=== PATIENT | male | born 1975 ===

== ENCOUNTER → 2023-05-10 | Outpatient (CLI) | payer OTHER ==
[2023-05-12 18:06] LABS: CHLAMYDIA BY NAA Negative (Negative); GONOCOCCUS BY NAA Negative (Negative); TRICH VAG BY NAA Negative (Negative)
== END ==
LOC: LAB 15:00 → LAB SHORT 15:00
PROVIDERS: Registered Nurse Community Health
DX: R20.8 Other disturbances of skin sensation (principal)
CPT/HCPCS: 87491; 87591; 87661